=== PATIENT | female | born 1980 | race Caucasian/White ===

== ENCOUNTER → 2016-10-16 | Outpatient (REF) | payer OTHER ==
[2016-10-16 14:41] LABS: BASO % 0.4 % (0.0-1.0); EOS # 0.1 K/mm3 (0.0-0.50); EOS % 1.4 % (0.0-3.0); LARGE UNSTAINED CELL # 0.1 K/mm3 (0.0-0.4); LARGE UNSTAINED CELL % 1.3 % (0.0-4.0); LYMPH # 1.5 K/mm3 (1.5-4.5); LYMPH % 22.4 % (24.0-44.0); MEAN CORPUSCULAR HEMOGLOBIN 29.2 pg (27.0-33.0); MEAN CORPUSCULAR HGB CONC 31.8 g/dl (32.0-36.5); MONO # 0.4 K/mm3 (0.0-0.8); MONO % 6.2 % (0.0-5.0); NEUTROPHILS # 4.4 K/mm3 (1.8-7.7); NEUTROPHILS % 68.3 % (36.0-66.0); PLATELET COUNT, AUTOMATED 307 k/mm3 (150-450); RED CELL DISTRIBUTION WIDTH 12.8 % (11.5-14.5); WHITE BLOOD COUNT 6.5 K/mm3 (4.0-10.0)
[2016-10-16 14:54] LABS: FREE T4 0.94 NG/DL (0.76-1.46)
[2016-10-18 00:06] LABS: TISSUE TRANSGLUTAMINASE IgG <2 U/mL (0-5)
== END ==
LOC: M LABDRAW1 13:54
PROVIDERS: ATTEND Physician Assistant Medical
DX: N94.6 Dysmenorrhea, unspecified (principal); R19.7 Diarrhea, unspecified

== ENCOUNTER → 2017-01-23 | Outpatient (REF) | payer OTHER | LOC: M LAB REF 17:34 | PROVIDERS: ATTEND Family Medicine | DX: Z12.4 Encounter for screening for malignant neoplasm of cervix (principal) ==

== ENCOUNTER → 2020-09-07 | Outpatient (CLI) | payer OTHER ==
--- NOTE | 2020-09-07 18:45 | REP ---
INDICATION: COTNUSION. COMPARISON: None. TECHNIQUE: Five views. FINDINGS: Lumbar vertebral body heights are preserved. Alignment is normal. There is minimal discogenic spurring anteriorly at L4-5. Disc spaces are maintained. Pedicles and posterior elements are intact. Psoas margins are symmetric. Sacrum and SI joints are unremarkable. IMPRESSION: Minimal degenerative disc changes L4-5. No traumatic abnormality noted. <Electronically signed by Matthieu Dunlap > 09/07/20 [id number]
--- NOTE | 2020-09-07 18:45 | REP ---
INDICATION: COTNUSION. COMPARISON: None. TECHNIQUE: AP and frogleg views of the right hip are presented. FINDINGS: Right femoral head is smooth and rounded hip joint space is preserved. Periarticular soft tissues are unremarkable. No fracture is seen in the sacrum right hemipelvis. No hip fracture is noted. IMPRESSION: Negative radiographs of the right hip. <Electronically signed by Matthieu Dunlap > 09/07/20 [id number]
--- NOTE | 2020-09-07 18:46 | REP ---
INDICATION: COTNUSION. COMPARISON: Lumbar spine today TECHNIQUE: Three views FINDINGS: Sacral ala and foramina symmetric and normal the SI joints appear symmetric with no erosion, sclerosis or abnormal widening. No focal lesions in the visualized sacral ala or iliac wings. Pubic rami and symphysis pubis seen were intact. The pelvic ring was intact. Lateral view of sacrum and coccyx shows no acute finding IMPRESSION: Negative sacrum and coccyx series.. <Electronically signed by John Moyer > 09/07/20 [id number]
== END ==
LOC: M WUC 10:59
PROVIDERS: ATTEND Physician Assistant
DX: S70.01XA Contusion of right hip, initial encounter (principal); S30.0XXA Contusion of lower back and pelvis, initial encounter; X58.XXXA Exposure to other specified factors, initial encounter; Y92.89 Other specified places as the place of occurrence of the external cause; Y93.89 Activity, other specified; Y99.8 Other external cause status; M51.36 Other intervertebral disc degeneration, lumbar region

== ENCOUNTER → 2021-02-07 | Outpatient (REF) | payer OTHER | LOC: M LAB REF 18:45 | PROVIDERS: ATTEND Family Medicine | DX: Z12.4 Encounter for screening for malignant neoplasm of cervix (principal) | CPT/HCPCS: 87624; G0123 ==